=== PATIENT | female | born 1985 | race Caucasian/White ===

== ENCOUNTER 2017-04-04 18:50 | Emergency (ER) | payer OTHER ==
[~2017-04-04] VITALS: Ht 160 cm; Wt 81.6 kg
[2017-04-04 18:50] VITALS: BP_SYST 115
[2017-04-04] MEDS ORDERED: KETOROLAC TROMETHAMINE 60 MG/2 ML VIAL IM ONE (20:00)
[2017-04-04 20:40] VITALS: BP_SYST 120
== END 2017-04-04 20:40 | disposition home or self-care (01) ==
LOC: SED 18:50
DX: R51 Headache (principal); R07.89 Other chest pain; F41.9 Anxiety disorder, unspecified; F17.200 Nicotine dependence, unspecified, uncomplicated
CPT/HCPCS: 81025; 93005; 96372; 99283; J1885